=== PATIENT | female | born 1940 | race Two or more races ===

== ENCOUNTER → 2018-01-30 | Outpatient (CLI) | payer OTHER ==
[~2018-01-30] MED LIST: ALBIPROI INH; ALBU90OI61 INH; ALPR.25; ALPR.5 PO; ALPR1 PO; AMLO5 PO; BENA10; BENA20 PO; BENZ100A PO; BISA5EC PO; BUDE6HFA INH; Baclofen10 MG PO; CETI5 PO; CIME300; CLOBET30L TOP; CORAL CALCIUM; CYCL10 PO; Cyclobenzaprine5 MG PO; DICLOFENAC SOD100 G1 TOP; DIPHENHYDRAMINE 25 MG; DULO60 PO; FENO145 PO; FENO160; FLUC100 PO; FOLI1; FOLI1 PO; FOLIC ACID; FURO20 PO; FURO40 PO; GABA100 PO; GABA600 PO; GABA800 PO; HYDACE10B; HYDACE10B PO; HYDACE5 PO; HYDCHL12.5 PO; IPRAOI; LEVFLO500 PO; LEVO-T50 MCG PO; LEVSOD50 PO; MAGOXI400 PO; MECL25 PO; MELO7.5 PO; METFORMIN 1000 MG; METTREX2.5 PO; Mucinex600 MG PO; NYST100TC TOP; Norco 10-325 T1 EACH PO; OXYC30 PO; Omeprazole20 M1 PO; PENVK500 PO; PIOG15; PREVALITE POWD231 GM PO; PROVERA; Percocet 5-3251 EACH PO; Prednisone20 MG PO; ROPI.25 PO; SERT100; TIZANIDINE HCL4 MG PO; TIZANIDINE HCL6 MG PO; VITAMIN D; VOLTAREN GEL; Voltaren100 GM TP; [UNRECOGNIZED DRUG - OTHER]; [UNRECOGNIZED DRUG - REMARK]
[2018-01-30 13:32] LABS: Bilirubin, Urine Neg (Neg); Blood, Urine 2+ (Neg); Glucose Qualitative, Urine Neg (Neg); Ketones, Urine Neg (Neg); Leukocyte Esterase, Urine 3+ (Neg); Nitrite, Urine Neg (Neg); Protein, Urine Neg (Neg); Urobilinogen, Urine NORM (Normal); pH, Urine 6.5 (5.0-8.0)
[2018-01-30 13:49] LABS: Appearance, Urine Clear (Clear); Color, Urine Yellow (P-Yellow)
[2018-01-30 13:51] LABS: White Blood Cells, Urine 50-100 /hpf (0-5)
[2018-01-30 13:52] LABS: Bacteria Few /hpf; Squamous Epithelial Cells Few /hpf (Few)
== END | disposition home or self-care (01) ==
LOC: LAB 10:58 → LAB SHORT 10:58
PROVIDERS: Obstetrics & Gynecology Female Pelvic Medicine and Reconstructive Surgery
DX: N39.0 Urinary tract infection, site not specified (principal)
CPT/HCPCS: 81001

== ENCOUNTER 2018-03-05 02:38 | Emergency (ER) | payer OTHER ==
[~2018-03-05] VITALS: Ht 152.4 cm; Wt 76.7 kg
[2018-03-05] MEDS ORDERED: LOSA25 PO (02:56)
[2018-03-05 03:13] LABS: BASOPHILS ABSOLUTE AUTO 0.02 K/mm3 (0.00-0.23); BASOPHILS PERCENT AUTO 0 % (0-2); EOSINOPHILS ABSOLUTE AUTO 0.26 K/mm3 (0.00-0.68); EOSINOPHILS PERCENT AUTO 4 % (0-6); Hematocrit 37.5 % (33.0-51.0); Hemoglobin 12.3 g/dL (11.5-16.0); IMMATURE GRAN ABSOLUTE AUTO 0.07 K/mm3 (0.00-0.10); IMMATURE GRAN PERCENT AUTO 1 % (0-1); LYMPHOCYTES ABSOLUTE AUTO 1.79 K/mm3 (0.84-5.20); LYMPHOCYTES PERCENT AUTO 30 % (21-46); MONOCYTES ABSOLUTE AUTO 0.55 K/mm3 (0.16-1.47); MONOCYTES PERCENT AUTO 9 % (4-13); Mean Corpuscular HGB 30.9 pg (26.0-34.0); Mean Corpuscular HGB Conc 32.8 g/dL (31.5-36.5); Mean Corpuscular Volume 94 fL (80-100); NEUTROPHILS ABSOLUTE AUTO 3.27 K/mm3 (1.96-9.15); NEUTROPHILS PERCENT AUTO 55 % (41-73); Platelet Count 207 K/mm3 (150-400); RDW Coefficient Variation 12.2 % (11.7-14.2); RDW Standard Deviation 42.5 fL (35.1-46.3); Red Blood Cell Count 3.98 M/mm3 (3.80-5.20); White Blood Cell Count 5.96 K/mm3 (4.00-11.30)
[2018-03-05 03:34] LABS: Alanine Aminotransfer (ALT/SGP 22 U/L (12-78); Albumin, Blood 3.2 g/dL (3.4-5.0); Albumin/Globulin Ratio 0.7 (0.8-1.8); Alk Phos 79 U/L (50-136); Anion Gap 6 mmol/L (6-16); Aspartate Aminotrans (AST/SGOT 24 U/L (12-37); Bilirubin, Total 0.2 mg/dL (0.1-1.0); Blood Urea Nitrogen 23 mg/dL (8-24); CO2, Blood 27 mmol/L (21-32); Calcium, Blood 8.4 mg/dL (8.5-10.1); Chloride, Blood 108 mmol/L (98-108); Creatinine, Blood 0.92 mg/dL (0.40-1.00); Globulin, Blood 4.4 g/dL (2.2-4.0); Glomerular Filtration Rate >60 (60-); Glucose, Blood 83 mg/dL (70-99); Potassium, Blood 3.7 mmol/L (3.5-5.5); Sodium, Blood 141 mmol/L (136-145); Total Protein, Blood 7.6 g/dL (6.4-8.2); Troponin I <0.015 ng/mL (0.000-0.040)
== END 2018-03-05 05:55 | disposition home or self-care (01) ==
LOC: ER 02:38
PROVIDERS: Emergency Medicine
DX: S00.03XA Contusion of scalp, initial encounter (principal); W22.8XXA Striking against or struck by other objects, initial encounter; Z88.2 Allergy status to sulfonamides; Z79.899 Other long term (current) drug therapy; Z79.891 Long term (current) use of opiate analgesic; E78.00 Pure hypercholesterolemia, unspecified; F32.9 Major depressive disorder, single episode, unspecified; E11.9 Type 2 diabetes mellitus without complications
CPT/HCPCS: 70450; 80053; 83880; 84484; 85025; 93005; 93010; 99285-25

== ENCOUNTER 2018-11-03 15:12 | Emergency (ER) | payer MEDICARE, OTHER ==
[~2018-11-03] VITALS: Ht 149.9 cm; Wt 77.1 kg
[~2018-11-03 15:12] MED LIST changes: +LOSA25 PO
[2018-11-03] MEDS ORDERED: Cymbalta60 MG (15:25)
[2018-11-03] MEDS ORDERED: Zantac150 MG PO (15:25)
[2018-11-03] MEDS ORDERED: BUME1 PO (15:26)
[2018-11-03] MEDS ORDERED: SPIR25 PO (15:27)
[2018-11-03] MEDS ORDERED: POTCHL10ER PO (15:27)
== END 2018-11-03 16:08 | disposition home or self-care (01) ==
LOC: ER 15:12
DX: S00.81XA Abrasion of other part of head, initial encounter (principal); W01.198A Fall on same level from slipping, tripping and stumbling with subsequent striking against other object, initial encounter; E11.9 Type 2 diabetes mellitus without complications; E78.5 Hyperlipidemia, unspecified
CPT/HCPCS: 99283

== ENCOUNTER 2019-02-20 16:28 | Emergency (ER) | payer MEDICARE, OTHER ==
[~2019-02-20] VITALS: Ht 149.9 cm; Wt 81.7 kg
[~2019-02-20 16:28] MED LIST changes: +BUME1 PO; +Cymbalta60 MG; +POTCHL10ER PO; +SPIR25 PO; +Zantac150 MG PO
[2019-02-20 17:47] LABS: BASOPHILS ABSOLUTE AUTO 0.03 K/mm3 (0.00-0.23); BASOPHILS PERCENT AUTO 1 % (0-2); EOSINOPHILS PERCENT AUTO 2 % (0-6); Hemoglobin 13.1 g/dL (11.5-16.0); IMMATURE GRAN ABSOLUTE AUTO 0.01 K/mm3 (0.00-0.10); IMMATURE GRAN PERCENT AUTO 0 % (0-1); LYMPHOCYTES ABSOLUTE AUTO 0.89 K/mm3 (0.84-5.20); LYMPHOCYTES PERCENT AUTO 15 % (21-46); MONOCYTES ABSOLUTE AUTO 0.29 K/mm3 (0.16-1.47); MONOCYTES PERCENT AUTO 5 % (4-13); Mean Corpuscular HGB 32.9 pg (26.0-34.0); Mean Corpuscular HGB Conc 32.8 g/dL (31.5-36.5); Mean Corpuscular Volume 101 fL (80-100); Mean Platelet Volume 10.7 fL (9.1-12.4); NEUTROPHILS ABSOLUTE AUTO 4.48 K/mm3 (1.96-9.15); NEUTROPHILS PERCENT AUTO 77 % (41-73); Platelet Count 216 K/mm3 (150-400); RDW Coefficient Variation 12.9 % (11.7-14.2); RDW Standard Deviation 46.8 fL (35.1-46.3); Red Blood Cell Count 3.98 M/mm3 (3.80-5.20)
[2019-02-20 18:13] LABS: Alanine Aminotransfer (ALT/SGP 26 U/L (12-78); Albumin, Blood 3.1 g/dL (3.4-5.0); Albumin/Globulin Ratio 0.7 (0.8-1.8); Alk Phos 84 U/L (50-136); Anion Gap 6 mmol/L (6-16); Aspartate Aminotrans (AST/SGOT 30 U/L (12-37); Bilirubin, Total 0.6 mg/dL (0.1-1.0); Blood Urea Nitrogen 29 mg/dL (8-24); Bun/Creatinine Ratio 27.6 (12.0-20.0); CO2, Blood 28 mmol/L (21-32); Calcium, Blood 9.1 mg/dL (8.5-10.1); Chloride, Blood 105 mmol/L (98-108); Creatinine, Blood 1.05 mg/dL (0.40-1.00); Globulin, Blood 4.7 g/dL (2.2-4.0); Glomerular Filtration Rate 54 (60-); Glucose, Blood 230 mg/dL (70-99); Magnesium, Blood 1.9 mg/dL (1.6-2.4); Potassium, Blood 4.5 mmol/L (3.5-5.5); Sodium, Blood 139 mmol/L (136-145); Total Protein, Blood 7.8 g/dL (6.4-8.2); Troponin I <0.015 ng/mL (0.000-0.040)
== END 2019-02-20 19:30 | disposition home or self-care (01) ==
LOC: ER 16:28
PROVIDERS: Physician Assistant
DX: I87.2 Venous insufficiency (chronic) (peripheral) (principal); Z88.2 Allergy status to sulfonamides; Z79.899 Other long term (current) drug therapy; Z79.891 Long term (current) use of opiate analgesic; E11.9 Type 2 diabetes mellitus without complications; I12.9 Hypertensive chronic kidney disease with stage 1 through stage 4 chronic kidney disease, or unspecified chronic kidney disease; N18.3 Chronic kidney disease, stage 3 (moderate); E78.5 Hyperlipidemia, unspecified; E03.9 Hypothyroidism, unspecified; F32.9 Major depressive disorder, single episode, unspecified
CPT/HCPCS: 36415; 80053; 83735; 83880; 84484; 85025; 99283

== ENCOUNTER 2019-04-29 12:24 | Emergency (ER) | payer MEDICARE, OTHER ==
[~2019-04-29] VITALS: Ht 149.9 cm; Wt 78.9 kg
[2019-04-29] MEDS ORDERED: GABA400 PO (12:41)
[2019-04-29] MEDS ORDERED: METF500 PO (12:41)
[2019-04-29] MEDS ORDERED: ALLO100 PO (12:42)
[2019-04-29] MEDS ORDERED: LOSARTAN POTASS25 M2 PO (12:48)
[2019-04-29] MEDS ORDERED: Azithromycin250 MG PO (12:48)
[2019-04-29] MEDS ORDERED: Tussin Dm Clea118 ML PO (13:10)
[2019-04-29] MEDS ORDERED: Vibramycin100 MG PO (13:10)
[2019-04-29] MEDS ORDERED: BENZ100A PO (13:10)
== END 2019-04-29 13:18 | disposition home or self-care (01) ==
LOC: ER 12:24
DX: J18.1 Lobar pneumonia, unspecified organism (principal); E78.5 Hyperlipidemia, unspecified; E11.9 Type 2 diabetes mellitus without complications; I10 Essential (primary) hypertension; J44.9 Chronic obstructive pulmonary disease, unspecified; F32.9 Major depressive disorder, single episode, unspecified; F41.9 Anxiety disorder, unspecified; E03.9 Hypothyroidism, unspecified; Z88.2 Allergy status to sulfonamides; Z79.899 Other long term (current) drug therapy
CPT/HCPCS: 71046; 99283-25

== ENCOUNTER → 2021-06-06 | Outpatient (CLI) | payer MEDICARE, OTHER ==
[~2021-06-06] MED LIST changes: +ALLO100 PO; +Azithromycin250 MG PO; +GABA400 PO; +LOSARTAN POTASS25 M2 PO; +METF500 PO; +Tussin Dm Clea118 ML PO; +Vibramycin100 MG PO
[2021-06-06 17:15] LABS: BASOPHILS ABSOLUTE AUTO 0.04 K/mm3 (0.00-0.23); BASOPHILS PERCENT AUTO 1 % (0-2); EOSINOPHILS ABSOLUTE AUTO 0.11 K/mm3 (0.00-0.68); EOSINOPHILS PERCENT AUTO 2 % (0-6); Hematocrit 37.9 % (33.0-51.0); Hemoglobin 12.7 g/dL (11.5-16.0); IMMATURE GRAN ABSOLUTE AUTO 0.01 K/mm3 (0.00-0.10); IMMATURE GRAN PERCENT AUTO 0 % (0-1); LYMPHOCYTES ABSOLUTE AUTO 1.29 K/mm3 (0.84-5.20); LYMPHOCYTES PERCENT AUTO 24 % (21-46); MONOCYTES ABSOLUTE AUTO 0.46 K/mm3 (0.16-1.47); MONOCYTES PERCENT AUTO 8 % (4-13); Mean Corpuscular HGB 32.2 pg (26.0-34.0); Mean Corpuscular HGB Conc 33.5 g/dL (31.5-36.5); Mean Corpuscular Volume 96 fL (80-100); NEUTROPHILS ABSOLUTE AUTO 3.55 K/mm3 (1.96-9.15); NEUTROPHILS PERCENT AUTO 65 % (41-73); Platelet Count 264 K/mm3 (150-400); RDW Coefficient Variation 13.2 % (11.7-14.2); RDW Standard Deviation 46.4 fL (35.1-46.3); Red Blood Cell Count 3.95 M/mm3 (3.80-5.20); White Blood Cell Count 5.46 K/mm3 (4.00-11.30)
[2021-06-06 17:31] LABS: Albumin, Blood 3.7 g/dL (3.4-5.0); Albumin/Globulin Ratio 0.9 (0.8-1.8); Bilirubin, Total 0.2 mg/dL (0.1-1.0); Bun/Creatinine Ratio 21.3 (12.0-20.0); Calcium, Blood 8.9 mg/dL (8.5-10.1); Creatinine, Blood 1.27 mg/dL (0.40-1.00); Globulin, Blood 3.9 g/dL (2.2-4.0); Magnesium, Blood 1.8 mg/dL (1.6-2.4); Potassium, Blood 4.3 mmol/L (3.5-5.5); Total Protein, Blood 7.6 g/dL (6.4-8.2)
== END ==
LOC: LAB SHORT 17:09
PROVIDERS: Physician Assistant
DX: R25.2 Cramp and spasm (principal); Z88.2 Allergy status to sulfonamides
CPT/HCPCS: 80053; 83735; 85025

== ENCOUNTER 2021-11-24 00:44 | Emergency (ER) | payer MEDICARE, OTHER ==
[~2021-11-24] VITALS: Ht 149.9 cm; Wt 78.9 kg
[2021-11-24 01:23] LABS: Source, Urine Clean Catch
[2021-11-24 01:26] LABS: BASOPHILS ABSOLUTE AUTO 0.06 K/mm3 (0.00-0.23); BASOPHILS PERCENT AUTO 1 % (0-2); EOSINOPHILS ABSOLUTE AUTO 0.06 K/mm3 (0.00-0.68); EOSINOPHILS PERCENT AUTO 1 % (0-6); Hematocrit 43.6 % (33.0-51.0); Hemoglobin 14.4 g/dL (11.5-16.0); IMMATURE GRAN ABSOLUTE AUTO 0.05 K/mm3 (0.00-0.10); IMMATURE GRAN PERCENT AUTO 0 % (0-1); LYMPHOCYTES ABSOLUTE AUTO 1.23 K/mm3 (0.84-5.20); LYMPHOCYTES PERCENT AUTO 10 % (21-46); MONOCYTES ABSOLUTE AUTO 0.41 K/mm3 (0.16-1.47); MONOCYTES PERCENT AUTO 3 % (4-13); Mean Corpuscular HGB 31.9 pg (26.0-34.0); Mean Corpuscular Volume 97 fL (80-100); NEUTROPHILS ABSOLUTE AUTO 10.32 K/mm3 (1.96-9.15); NEUTROPHILS PERCENT AUTO 85 % (41-73); Platelet Count 329 K/mm3 (150-400); RDW Standard Deviation 49.3 fL (35.1-46.3); Red Blood Cell Count 4.51 M/mm3 (3.80-5.20); White Blood Cell Count 12.13 K/mm3 (4.00-11.30)
[2021-11-24 01:28] LABS: Appearance, Urine Clear (Clear); Bilirubin, Urine Neg (Neg); Blood, Urine 2+ (Neg); Color, Urine Pale Yellow (P-Yellow); Glucose Qualitative, Urine 4+ (Neg); Ketones, Urine Neg (Neg); Leukocyte Esterase, Urine 1+ (Neg); Nitrite, Urine Neg (Neg); Protein, Urine 3+ (Neg); Urobilinogen, Urine NORM (Normal)
[2021-11-24 01:37] LABS: Albumin/Globulin Ratio 0.9 (0.8-1.8); Bilirubin, Total 0.5 mg/dL (0.1-1.0); Calcium, Blood 9.7 mg/dL (8.5-10.1); Globulin, Blood 4.7 g/dL (2.2-4.0); Potassium, Blood 3.7 mmol/L (3.5-5.5); Total Protein, Blood 8.7 g/dL (6.4-8.2)
[2021-11-24 01:43] LABS: Hyaline Casts 0-2 /lpf (0-2)
[2021-11-24 01:44] LABS: Bacteria Mod /hpf; Red Blood Cells, Urine 0-2 /hpf (0-2); Squamous Epithelial Cells Few /hpf (Few)
== END 2021-11-24 04:50 | disposition home or self-care (01) ==
LOC: ER 00:44
PROVIDERS: Student in an Organized Health Care Education/Training Program
DX: K52.9 Noninfective gastroenteritis and colitis, unspecified (principal); E11.9 Type 2 diabetes mellitus without complications; J44.9 Chronic obstructive pulmonary disease, unspecified; I10 Essential (primary) hypertension; E03.9 Hypothyroidism, unspecified; Z88.2 Allergy status to sulfonamides; Z79.84 Long term (current) use of oral hypoglycemic drugs; Z79.899 Other long term (current) drug therapy
CPT/HCPCS: 36415; 74177; 80053; 81001; 83690; 85025; J1885; J2270; J2765; Q9967

== ENCOUNTER → 2023-05-25 | Outpatient (CLI) | payer MEDICARE, OTHER ==
[~2023-05-25] MED LIST changes: +CEFP200 PO; +ONDA4ODT MM
== END ==
LOC: LAB 14:36 → LAB SHORT 14:36
DX: R21 Rash and other nonspecific skin eruption (principal)
CPT/HCPCS: 88312

== ENCOUNTER → 2023-06-06 | Outpatient (CLI) | payer MEDICARE, OTHER | LOC: LAB 10:45 → LAB SHORT 10:45 | DX: L08.9 Local infection of the skin and subcutaneous tissue, unspecified (principal) | CPT/HCPCS: 87070; 87077; 87147; 87186; 87205 ==

== ENCOUNTER → 2024-08-13 | Outpatient (CLI) | payer MEDICARE | LOC: LAB 16:46 → LAB SHORT 16:46 | DX: N39.0 Urinary tract infection, site not specified (principal) | CPT/HCPCS: 87077; 87086; 87186 ==

== ENCOUNTER 2025-03-18 20:29 | Emergency (ER) | payer MEDICARE ==
[~2025-03-18] VITALS: Ht 149.9 cm; Wt 68.0 kg
[2025-03-18 21:01] LABS: BASOPHILS ABSOLUTE AUTO 0.01 K/mm3 (0.00-0.23); BASOPHILS PERCENT AUTO 0 % (0-2); EOSINOPHILS ABSOLUTE AUTO 0.32 K/mm3 (0.00-0.68); EOSINOPHILS PERCENT AUTO 3 % (0-6); Hematocrit 35.1 % (33.0-51.0); Hemoglobin 11.9 g/dL (11.5-16.0); IMMATURE GRAN ABSOLUTE AUTO 0.04 K/mm3 (0.00-0.10); IMMATURE GRAN PERCENT AUTO 0 % (0-1); LYMPHOCYTES ABSOLUTE AUTO 0.56 K/mm3 (0.84-5.20); LYMPHOCYTES PERCENT AUTO 5 % (21-46); MONOCYTES ABSOLUTE AUTO 0.50 K/mm3 (0.16-1.47); MONOCYTES PERCENT AUTO 4 % (4-13); Mean Corpuscular HGB Conc 33.9 g/dL (31.5-36.5); Mean Corpuscular Volume 93 fL (80-100); NEUTROPHILS ABSOLUTE AUTO 10.94 K/mm3 (1.96-9.15); NEUTROPHILS PERCENT AUTO 89 % (41-73); NRBC ABSOLUTE 0.00 K/mm3 (0.00-0.02); NRBC Auto 0.0 /100 WBC (0.0-0.2); Platelet Count 174 K/mm3 (150-400); RDW Coefficient Variation 12.9 % (11.7-14.2); RDW Standard Deviation 43.9 fL (35.1-46.3)
[2025-03-18 21:23] LABS: Alanine Aminotransfer (ALT/SGP 91.0 U/L (12-78); Albumin, Blood 2.6 g/dL (3.4-5.0); Albumin/Globulin Ratio 0.7 (0.8-1.8); Anion Gap 7.0 mmol/L (3-11); Aspartate Aminotrans (AST/SGOT 163.0 U/L (12-37); Bilirubin, Total 0.6 mg/dL (0.1-1.0); Blood Urea Nitrogen 29.0 mg/dL (8-24); CO2, Blood 26.0 mmol/L (21-32); Calcium, Blood 8.7 mg/dL (8.5-10.1); Chloride, Blood 100.0 mmol/L (98-108); Creatinine, Blood 1.33 mg/dL (0.40-1.00); Globulin, Blood 3.9 g/dL (2.2-4.0); Glucose, Blood 215.0 mg/dL (70-99); Potassium, Blood 4.3 mmol/L (3.5-5.5); Sodium, Blood 129.0 mmol/L (136-145); Total Protein, Blood 6.5 g/dL (6.4-8.2)
[2025-03-18 22:47] LABS: Source, Urine Clean Catch
[2025-03-18 22:55] LABS: Bilirubin, Urine Neg (Neg); Glucose Qualitative, Urine Neg (Neg); Ketones, Urine Neg (Neg); Leukocyte Esterase, Urine 1+ (Neg); Protein, Urine 2+ (Neg); Specific Gravity, Urine 1.010 (1.003-1.022); Urobilinogen, Urine NORM (Normal)
[2025-03-18] MEDS ORDERED: Nitrofurantoin100 M1 PO (22:59)
[2025-03-18] MEDS ORDERED: CARVEDILOL12.5 MG PO (23:00)
[2025-03-18] MEDS ORDERED: ROPINIROLE HCL0.5 MG PO (23:01)
[2025-03-18] MEDS ORDERED: POTA8 PO (23:02)
[2025-03-18] MEDS ORDERED: DULOXETINE HCL60 M1 PO (23:03)
[2025-03-18] MEDS ORDERED: CefTRIAXone Sodium 1,000 MG in NS 100 ML IV ONE (23:10)
[2025-03-18 23:14] LABS: Color, Urine Yellow (P-Yellow); Red Blood Cells, Urine Not Seen /hpf (0-2)
[2025-03-18 23:34] VITALS: BP 125/108
[2025-03-19] MEDS ORDERED: DOXY100 PO (01:01)
[2025-03-19] MEDS ORDERED: ACET500 PO (01:01)
[2025-03-19] MEDS ORDERED: CEPH500 PO (01:01)
== END 2025-03-19 01:12 | disposition home or self-care (01) ==
LOC: ER 20:29
PROVIDERS: Emergency Medicine
DX: J18.9 Pneumonia, unspecified organism (principal); N39.0 Urinary tract infection, site not specified; E03.9 Hypothyroidism, unspecified; E78.00 Pure hypercholesterolemia, unspecified; E11.9 Type 2 diabetes mellitus without complications; I10 Essential (primary) hypertension; Z79.899 Other long term (current) drug therapy; Z79.84 Long term (current) use of oral hypoglycemic drugs; Z88.2 Allergy status to sulfonamides
CPT/HCPCS: 71046; 80053; 81001; 85025; 87077; 87086; 87186; 96365; 99284-25; J0696

== ENCOUNTER 2025-04-19 04:04 | Inpatient (IN) | payer MEDICARE ==
[~2025-04-19] VITALS: Ht 139.7 cm; Wt 71.6 kg
[2025-04-19] VITALS (12 sets, daily range): BP systolic 100–177; BP diastolic 42–109
[~2025-04-19 04:04] MED LIST changes: +ACET500 PO; +CARVEDILOL12.5 MG PO; +CEPH500 PO; +DOXY100 PO; +DULOXETINE HCL60 M1 PO; +Nitrofurantoin100 M1 PO; +POTA8 PO; +ROPINIROLE HCL0.5 MG PO
[2025-04-19 04:26] LABS: pH Blood Venous 7.29 (7.34-7.37)
[2025-04-19 04:29] LABS: Hematocrit 37.7 % (33.0-51.0); Hemoglobin 12.9 g/dL (11.5-16.0); Mean Corpuscular HGB Conc 34.2 g/dL (31.5-36.5); Mean Corpuscular Volume 92 fL (80-100); NRBC ABSOLUTE 0.00 K/mm3 (0.00-0.02); NRBC Auto 0.0 /100 WBC (0.0-0.2); Platelet Count 166 K/mm3 (150-400); RDW Coefficient Variation 13.2 % (11.7-14.2); RDW Standard Deviation 44.8 fL (35.1-46.3)
[2025-04-19 04:50] LABS: Alanine Aminotransfer (ALT/SGP 177.0 U/L (12-78); Albumin, Blood 2.7 g/dL (3.4-5.0); Albumin/Globulin Ratio 0.8 (0.8-1.8); Anion Gap 11.0 mmol/L (3-11); Aspartate Aminotrans (AST/SGOT 254.0 U/L (12-37); Bilirubin, Total 2.5 mg/dL (0.1-1.0); Blood Urea Nitrogen 37.0 mg/dL (8-24); CO2, Blood 24.0 mmol/L (21-32); Calcium, Blood 9.1 mg/dL (8.5-10.1); Chloride, Blood 105.0 mmol/L (98-108); Creatinine, Blood 2.34 mg/dL (0.40-1.00); Globulin, Blood 3.5 g/dL (2.2-4.0); Glucose, Blood 160.0 mg/dL (70-99); Magnesium, Blood 1.5 mg/dL (1.6-2.4); Potassium, Blood 4.7 mmol/L (3.5-5.5); Sodium, Blood 135.0 mmol/L (136-145); Total Protein, Blood 6.2 g/dL (6.4-8.2)
[2025-04-19] MEDS ORDERED: CefTRIAXone Sodium 1,000 MG in NS 100 ML IV ONE (04:50)
[2025-04-19 05:10] LABS: BAND PERCENT MAN 33 % (0-8); BASOPHILS ABSOLUTE MAN 0.00 K/mm3 (0.00-0.23); BASOPHILS PERCENT MAN 0 % (0-2); EOSINOPHILS ABSOLUTE MAN 0.00 K/mm3 (0.00-0.68); EOSINOPHILS PERCENT MAN 0 % (0-6); LYMPHOCYTES ABSOLUTE MAN 0.24 K/mm3 (0.84-5.20); LYMPHOCYTES PERCENT MAN 1 % (21-46); METAMYELOCYTE ABSOLUTE MAN 0.49 K/mm3 (0.00-0.00); METAMYELOCYTE PERCENT MAN 2 % (0-0); MONOCYTES ABSOLUTE MAN 0.49 K/mm3 (0.16-1.47); MONOCYTES PERCENT MAN 2 % (4-13); NEUTROPHILS ABSOLUTE MAN 23.35 K/mm3 (1.96-9.15); SEG NEUTROPHILS PERCENT MAN 62 % (41-73)
[2025-04-19 06:01] LABS: Source, Urine Clean Catch
[2025-04-19 06:07] LABS: Bilirubin, Urine Neg (Neg); Glucose Qualitative, Urine Neg (Neg); Ketones, Urine 1+ (Neg); Leukocyte Esterase, Urine 1+ (Neg); Protein, Urine 2+ (Neg); Specific Gravity, Urine 1.015 (1.003-1.022); Urobilinogen, Urine NORM (Normal)
[2025-04-19] MEDS ORDERED: FLU VACC TS2025(65UP)/MF59C/PF 45 MCG/0.5 ML SYRINGE IM ONE (06:10)
[2025-04-19] MEDS ORDERED: Vancomycin (Pharmacy Consult) IV SCH (06:10)
[2025-04-19] MEDS ORDERED: Ipratropium/Albuterol SulF 2.5-0.5MG/3 ML Amp INH SCH ×2 (06:10→22:05)
[2025-04-19 06:15] LABS: Color, Urine Amber (P-Yellow)
[2025-04-19] MEDS ORDERED: Mag Sulfate 1 GM/D5% 100ML 100 ML IV STA (06:22)
[2025-04-19 06:23] LABS: White Blood Cells, Urine 0-2 /hpf (0-5)
[2025-04-19 06:24] LABS: Red Blood Cells, Urine 0-2 /hpf (0-2)
[2025-04-19 06:41] LABS: pH Blood Venous 7.32 (7.34-7.37)
[2025-04-19 06:44] LABS: Influenza A, PCR NEGATIVE (NEGATIVE); Influenza B, PCR NEGATIVE (NEGATIVE); Resp Syncytial Virus, PCR NEGATIVE (NEGATIVE); SARS-Cov-2 (COVID-19) PCR, MMC NEGATIVE (NEGATIVE)
[2025-04-19] MEDS ORDERED: Cefepime HCl 2,000 MG in NS 100 ML IV SCH (06:46)
[2025-04-19] MEDS ORDERED: CYMBALTA30 M1 PO (08:30)
[2025-04-19] MEDS ORDERED: Lactobacil 2-S.Thermo-Bifido 1 1 Cap PO SCH (09:00)
[2025-04-19] MEDS ORDERED: Enoxaparin 30 MG/0.3 ML SYR SC SCH (09:00)
[2025-04-19] MEDS ORDERED: OxyCODONE 5 mg/Acetamin 325 mg TABLET PO PRN (09:45)
[2025-04-19] MEDS ORDERED: NS 250 ML IV PRN (09:55)
[2025-04-19] MEDS ORDERED: Percocet 10-321 EACH PO (11:11)
[2025-04-19] MEDS ORDERED: ARNUITY ELLIP100 MCG INH (11:13)
[2025-04-19] MEDS ORDERED: Mometasone Furoate Inhaler 220 mcg 14 ACT INH SCH (11:40)
[2025-04-19] MEDS ORDERED: DULoxetine HCL 60 MG Capsule DR PO SCH (12:00)
--- NOTE | 2025-04-19 15:39 | NUR ---
"Spiritual Care | Pt. Request Pt. is awake in bed and welcomed my visit Pt. is pleasant. Facilitated a lengthy life review and listened with empathy and interest. Considered matters of vito and belief. Prayed with Pt. Pt. verbalized gratitude for the spiritual care visit."
--- NOTE | 2025-04-19 18:15 | NUR ---
Summary. Pt arrived to ICU alert and oriented to self/place/person. Some mild confusion noted, pt forgetful during conversation. Up to recliner this afternoon, ambulating with standby assist. No acute events this shift, see chart for further details.
[2025-04-20] VITALS (8 sets, daily range): BP systolic 129–176; BP diastolic 72–104
--- NOTE | 2025-04-20 01:35 | NUR ---
TRANSFER NOTE REPORT CALLED TO JENNIFER CELESTIN, PCU. REVIEWED ALL OUTSTANDING ISSUES AND PROBLEMS TO DATE. VSS AT THIS TIME, AFEBRILE. TRANSFERRING PT VIA W/C WITH TELE AND ALL BELONGINGS.
[2025-04-20 04:09] LABS: Hematocrit 37.2 % (33.0-51.0); Hemoglobin 12.6 g/dL (11.5-16.0); Mean Corpuscular HGB Conc 33.9 g/dL (31.5-36.5); Mean Corpuscular Volume 94 fL (80-100); NRBC ABSOLUTE 0.00 K/mm3 (0.00-0.02); NRBC Auto 0.0 /100 WBC (0.0-0.2); Platelet Count 141 K/mm3 (150-400); RDW Coefficient Variation 13.0 % (11.7-14.2); RDW Standard Deviation 45.0 fL (35.1-46.3)
[2025-04-20 04:25] LABS: Anion Gap 10.0 mmol/L (3-11); Blood Urea Nitrogen 42.0 mg/dL (8-24); CO2, Blood 21.0 mmol/L (21-32); Calcium, Blood 9.2 mg/dL (8.5-10.1); Chloride, Blood 108.0 mmol/L (98-108); Creatinine, Blood 1.32 mg/dL (0.40-1.00); Glucose, Blood 92.0 mg/dL (70-99); Potassium, Blood 3.7 mmol/L (3.5-5.5); Sodium, Blood 135.0 mmol/L (136-145)
--- NOTE | 2025-04-20 04:55 | NUR ---
SHIFT SUMMARY PT TRANSFERRED FROM ICU AT APPROXIMATELY 0140. PT IS PLEASANTLY CONFUSED. ORIENTED TO PERSON, PLACE AND SITUATION, AOX4 AT BASELINE. ABLE TO REORIENT BUT FORGETFUL. SHORT TERM MEMORY LOSS. BP ON RIGHT LEG. PUREWICK IN PLACE OVERNIGHT DRAINING CLEAR YELLOW URINE. BED ALARM ON D/T OCCASIONAL IMIPULSIVITY. CHRONIC LOW BACKPAIN MANAGED WITH MEDICATION PER EMAR. PT ABLE TO AMBULATE X1 ASSIST. NO C/O CHEST PAIN/PRESSURE. NO C/O SOB. CALL LIGHT WITHIN REACH. PT ABLE TO CALL FOR ASSISTANCE.
[2025-04-20] MEDS ORDERED: FLU VACC TS2025(65UP)/MF59C/PF 45 MCG/0.5 ML SYRINGE IM SCH (07:00)
[2025-04-20 07:56] LABS: Vancomycin, Random 11.6 ug/mL
[2025-04-20] MEDS ORDERED: DULoxetine HCL 30 MG Cap DR PO SCH (09:00)
[2025-04-20] MEDS ORDERED: Insulin Human Lispro 100 Units/ML 3ML Syringe SC SCH (16:30)
--- NOTE | 2025-04-20 17:10 | NUR ---
END OF SHIFT SUMMARY THE PT HAS BEEN A&OX3-4 AND IS SBA W/ FWW TO THE BATHROOM AND CHAIR. SHE IS FORGETFUL OF USING HER CALL LIGHT AND OF THE DATE. SHE HAS BEEN DOWN GRADED TO MEDICAL STATUS WITHOUT TELE. THE PT HAS BEEN ON RA T/O THE SHIFT AND SP02 >90%. SHE HAS DENIED ANY SOB AND STATES SHE IS FEELING "MUCH BETTER". BP STABLE. WHEN SHE WAS ON TELE SHE WAS SR W/O CARDIAC EVENTS. PLAN FOR ANOTHER DAY OF ABX AND SHE WILL LIKELY DISCHARGE TOMORROW. HER DAUGHTER HAS BEEN AT BEDSIDE AND WAS UPDATED ON CARE. NO ACUTE EVENTS THIS SHIFT. SEE NOTES FOR ANY UPDATES.
--- NOTE | 2025-04-20 19:31 | NUR ---
ASSUMPTION OF CARE ASSUMED PT'S CARE AT 1900.PT SLEEPING,OXYGEN SATURATION 84% ON RA.PT PLACED ON 1L OXYGEN VIA NC.OXYGEN SATURATION UP TO 92% ON 1L.BEDSIDE REPORT COMPLETED,PLAN OF CARE REVIEWED.PT DENIES PAIN,DENIES SOB,DENIES NEEDS.CALL LIGHT AND PT'S ITEMS WITHIN REACH.BED ALARM IN USE FOR FALL PREVENTION SAFETY.
--- NOTE | 2025-04-20 22:12 | NUR ---
TRANSFER REPORT GIVEN TO 341 NURSE AT 9231.PT TRANSFERRED AT THIS TIME VIA WHEELCHAIR.BELONGINGS,MEDS AND CHART SEND WITH PT.
--- NOTE | 2025-04-21 05:44 | NUR ---
SHIFT SUMMARY PT ALERT AND ORIENTED TIMES 4 . PT ADMITTED FOR ACUTE RESPIRATORY FAILURE. PT IS STANDY BY ASSIST TO TOILET. PT TAKES MEDICATION WHOLE WITH WATER. PT IS ACHS BLOOD SUGAR AND HAS IV IN RIGHT FOREARM AND LEFT FOREARM. PT IS ABLE TO MAKE NEEDS KNOWN TO STAFF. PT APPEARED TO SLEEP ON AND OFF DURING THE NIGHT WITHOUT ISSUES.. CALL LIGHT WITHIN REACH, RAILS TIMES 2, BED IN LOW POSITION.
[2025-04-21 07:36] VITALS: BP 189/107
[2025-04-21 09:49] LABS: Hematocrit 38.8 % (33.0-51.0); Hemoglobin 13.2 g/dL (11.5-16.0); Mean Corpuscular HGB Conc 34.0 g/dL (31.5-36.5); Mean Corpuscular Volume 93 fL (80-100); NRBC ABSOLUTE 0.00 K/mm3 (0.00-0.02); NRBC Auto 0.0 /100 WBC (0.0-0.2); Platelet Count 155 K/mm3 (150-400); RDW Coefficient Variation 13.0 % (11.7-14.2); RDW Standard Deviation 44.1 fL (35.1-46.3)
[2025-04-21 10:21] LABS: Anion Gap 7 mmol/L (3-11); Blood Urea Nitrogen 23 mg/dL (8-24); CO2, Blood 25 mmol/L (21-32); Calcium, Blood 9.3 mg/dL (8.5-10.1); Chloride, Blood 110 mmol/L (98-108); Creatinine, Blood 0.92 mg/dL (0.40-1.00); Glucose, Blood 153 mg/dL (70-99); Potassium, Blood 3.5 mmol/L (3.5-5.5); Sodium, Blood 138 mmol/L (136-145); Vancomycin, Random 12.1 ug/mL
[2025-04-21 11:08] VITALS: BP 168/82
[2025-04-21] MEDS ORDERED: LOSA50 PO (11:57)
[2025-04-21] MEDS ORDERED: AMOCLA875 PO (11:57)
[2025-04-21] MEDS ORDERED: VISBIOME 112.51 EACH PO (11:58)
--- NOTE | 2025-04-21 13:37 | NUR ---
DISCHARGE SUMMARY: A&Ox4. PLEASANT AND COOPERATIVE WITH CARE. CALLS APPROPRIATELY AND IS ABLE TO ADVOCATE NEEDS EFFECTIVELY. AMBULATES SBA c FWW. CONTINENT OF BOWEL AND BLADDER; LBM TODAY. MEDS WHOLE c FLUIDS. NO C/O PAIN OR DISCOMFORT. PATIENT PROVIDED WITH COPY OF DISCHARGE PLAN AND MEDICATION LIST. MED REC FAXED TO [facility]. INSTRUCTED TO FOLLOW-UP WITH SERGE BEAUCHAMP NP AND DR RASCON. ALL QUESTIONS ANSWERED TO DISCHARGING NURSE'S ABILITY AND PATIENT VOICED UNDERSTANDING OF DISCHARGE PLAN. IV REMOVED AND PRESSURE DRESSING PLACED. LEFT FLOOR WITH ALL BELONGINGS AND DISCHARGE PACKET, ESCORTED BY DAUGHTERS, ALSO PROVIDING TRANSPORTATION VIA POV.
[2025-04-22] MEDS ORDERED: Enoxaparin 40 MG/0.4 ML SYR SC SCH (09:00)
== END 2025-04-21 14:14 | disposition home or self-care (01) | DRG 871 ==
LOC: ER 04:04 → ICUE 06:04 → PCU 07:25 → ICUE 09:35 → PCU 04-20 01:50 → MEDS 04-20 22:15
PROVIDERS: Internal Medicine; Student in an Organized Health Care Education/Training Program; ADMIT Student in an Organized Health Care Education/Training Program
DX: A41.9 Sepsis, unspecified organism (principal); J18.9 Pneumonia, unspecified organism; J96.01 Acute respiratory failure with hypoxia; J96.02 Acute respiratory failure with hypercapnia; R65.21 Severe sepsis with septic shock; N17.9 Acute kidney failure, unspecified; E87.20 Acidosis, unspecified; J44.0 Chronic obstructive pulmonary disease with (acute) lower respiratory infection; N39.0 Urinary tract infection, site not specified; I12.9 Hypertensive chronic kidney disease with stage 1 through stage 4 chronic kidney disease, or unspecified chronic kidney disease; N18.30 Chronic kidney disease, stage 3 unspecified; E11.22 Type 2 diabetes mellitus with diabetic chronic kidney disease; E03.9 Hypothyroidism, unspecified; E83.42 Hypomagnesemia; M54.50 Low back pain, unspecified; E78.00 Pure hypercholesterolemia, unspecified; E11.65 Type 2 diabetes mellitus with hyperglycemia; G89.29 Other chronic pain; F41.9 Anxiety disorder, unspecified; M06.9 Rheumatoid arthritis, unspecified; Z79.84 Long term (current) use of oral hypoglycemic drugs; Z79.890 Hormone replacement therapy; Z79.899 Other long term (current) drug therapy; Z88.2 Allergy status to sulfonamides
CPT/HCPCS: 36415; 51701; 71045; 71046; 76700; 80048; 80053; 80202; 81001; 82803; 82947; 83605; 83690; 83735; 83880; 84145; 85025; 85027; 87040; 87086; 87637; 93005; 93010; 93306; 94640; 94664; 94760; 94762; 96374; 99285-25; A9270; J0456; J0692; J0696; J1650; J3373; J3475; J7050; J7120